=== PATIENT | female | born 1975 | race American Indian/Alaskan Native ===

== ENCOUNTER 2016-08-07 09:15 | Emergency (ER) | payer MEDICAID ==
[2016-08-07 09:33] VITALS: BP 102/66
[2016-08-07 10:02] LABS: Bilirubin,Urine NEG (Negative); Blood,Urine MOD (Negative); Ketones,Urine TR mg/dL (Negative); Leukocyte Esterase,Urine SM (Negative); Mucus,Urine 3+ /HPF; Nitrite,Urine NEG (Negative); Urobilinogen,Urine < 2.0 mg/dL (<2.0)
--- NOTE | 2016-08-07 11:49 | Emergency Department Report ---
ED Female HPI - General Chief complaint: Urogenital-Female Stated complaint: SEVERE GENITAL PAIN/SWOLLEN GLANDS Time Seen by Provider: 08/07/16 11:31 Source: patient Mode of arrival: Ambulatory Limitations: No Limitations - History of Present Illness Initial comments: PT states she has a hx of bartholin's abscess. PT states 2 days ago she started to have pain and swelling to L labia. 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 PT states she did have unprotected sex two weeks ago and she is not sure if that is related. MD Complaint: possible STD, other (labia swelling ) Onset/Timin -: Gradual Location: labia Severity: severe Severity scale (0 -10): 8 Quality: sharp Consistency: constant Improves with: medication Worsens with: movement, other (palpation ) Are you Now?: No Last Menstrual Period: 07/12/16 EDC: 04/18/17 Associated Symptoms: denies other symptoms. denies: vaginal discharge, vaginal bleeding, nausea/vomiting, loss of appetite, dysuria - Related Data Sexually active: Yes Previous Rx's Medication Instructions Recorded Last Taken Type Acetaminophen/Codeine [Tylenol #3] 1 tab PO Q6H PRN #12 tab 08/07/16 Unknown Rx Sulfamethoxazole/Trimethoprim 1 each PO BID #14 tablet 08/07/16 Unknown Rx [Bactrim DS TAB] Allergies Allergy/AdvReac Type Severity Reaction Status Date / Time No Known Allergies Allergy Unverified 01/03/13 14:24 ED Review of Systems ROS: Stated complaint: SEVERE GENITAL PAIN/SWOLLEN GLANDS Other details as noted in HPI Comment: All other systems reviewed and negative Constitutional: denies: chills, fever Gastrointestinal: denies: abdominal pain, nausea, vomiting Genitourinary: other (L labia pain and swelling ). denies: dysuria, discharge, abnormal menses Musculoskeletal: back pain Skin: as per HPI ED Past Medical Hx - Past Medical History Additional medical history: breast cancer - Surgical History Additional Surgical History: right lumpectomy - Social History Smoking Status: Former Smoker Substance Use Type: None - Medications Home Medications: Home Medications Medication Instructions Recorded Confirmed Last Taken Type Acetaminophen/Codeine [Tylenol #3] 1 tab PO Q6H PRN #12 tab 08/07/16 Unknown Rx Sulfamethoxazole/Trimethoprim 1 each PO BID #14 tablet 08/07/16 Unknown Rx [Bactrim DS TAB] ED Physical Exam - General Limitations: No Limitations General appearance: alert, in no apparent distress - Head Head exam: Present: atraumatic, normocephalic - Eye Eye exam: Present: normal appearance. Absent: conjunctival injection - ENT ENT exam: Present: normal exam, normal external ear exam - Neck Neck exam: Present: normal inspection, full ROM - Respiratory Respiratory exam: Present: normal lung sounds bilaterally. Absent: respiratory distress - Cardiovascular Cardiovascular Exam: Present: regular rate, normal rhythm, normal heart sounds - GI/Abdominal GI/Abdominal exam: Present: soft, normal bowel sounds. Absent: tenderness - External exam: Present: swelling, other (L Bartholin's abscess ) - Extremities Exam Extremities exam: Present: normal inspection, full ROM - Back Exam Back exam: Present: normal inspection, full ROM - Neurological Exam Neurological exam: Present: alert, oriented X3 - Psychiatric Psychiatric exam: Present: normal affect, normal mood - Skin Skin exam: Present: warm, dry, intact, normal color ED Course Vital Signs 08/07/16 09:29 Temperature 98.5 F Pulse Rate 88 Respiratory 16 Rate Blood Pressure 102/66 O2 Sat by Pulse 98 Oximetry - Reevaluation(s) Reevaluation #1: 08/07/16 11:49 PT aware of dx. PT gives verbal consent for I and D Reevaluation #2: 08/07/16 13:18 PT reports decrease pain after I and D. 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 PT aware she will need to follow up for full panel std testing. PT has no questions at this time. - I & D Left Pubic Area Type of Procedure: Simple Site: L labia Blade Size: 11 I & D Procedure: betadine prep, sterile drapes applied, no sterile dressing applied, no gauze wick placed (Word catheter placed ) Progress: skin cleansed with betadine. 8 mls of 1% lidocaine used to anesthetize the area. 11 blade use to make incision. Copious amount of purulent drainage noted. Site irrigated with NS, loculations broken up with hemostats. Word Catheter placed. balloon inflated. PT tolerated the procedure well. - Pulse Oximetry Interpretation Digit-Finger Initial Pulse Oximetry Readin Actions Taken: none ED Medical Decision Making - Lab Data Lab Results 08/07/16 08/07/16 Range/Units 09:39 11:36 Urine Color Yellow (Yellow) Urine Turbidity Slightly-cloudy (Clear) Urine pH 6.0 (5.0-7.0) Ur Specific [place] 1.025 (1.003-1.030) Urine Protein 30 mg/dl (Negative) mg/dL Urine Glucose (UA) Neg (Negative) mg/dL Urine Ketones Tr (Negative) mg/dL Urine Blood Mod (Negative) Urine Nitrite Neg (Negative) Urine Bilirubin Neg (Negative) Urine Urobilinogen < 2.0 (<2.0) mg/dL Ur Leukocyte Esterase Sm (Negative) Urine WBC (Auto) 14.0 H (0.0-6.0) /HPF Urine RBC (Auto) 7.0 (0.0-6.0) /HPF U Epithel Cells (Auto) 23.0 H (0-13.0) /HPF Urine Mucus 3+ /HPF Urine HCG, Qual Negative (Negative) ua contaminated - Differential Diagnosis abscess, cellulitis, Critical Care Time: No Critical care attestation.: If time is entered above; I have spent that time in minutes in the direct care of this critically ill patient, excluding procedure time. ED Disposition Clinical Impression: Bartholin's cyst, Risky sexual behavior Disposition: DC- TO HOME OR SELFCARE Is pt being admited?: No Does the pt Need Aspirin: No Condition: Stable Instructions: Sexually Transmitted Diseases (ED), Safe Sex (ED), Bartholin Cyst (ED), Incision and Drainage (ED) Additional Instructions: follow up with adjunct instructor of women's studies follow up for full panel STD testing Warm compresses to L groin multiple times a day No driving or ETOH after taking Tylenol #3 Do no take any other Tylenol containing products when taking Tylenol #3 finish all antibiotics Prescriptions: Acetaminophen/Codeine [Tylenol #3] 1 tab PO Q6H PRN #12 tab PRN Reason: Pain , Severe (7-10) Sulfamethoxazole/Trimethoprim [Bactrim DS TAB] 1 each PO BID #14 tablet Referrals: JANET ARROYO MD [Primary Care Provider] - 3-5 Days ESTRADA UGALDE MD [Staff Physician] - 3-5 Days Forms: Work/School Release Form(ED) Time of Disposition: 13:22
[2016-08-07] MEDS ORDERED: MOTRIN PO ONE (11:50)
[2016-08-07] MEDS ORDERED: XYLOCAINE 1% 20 mL INFILTRATI ONE (11:50)
[2016-08-07] MEDS ORDERED: XYLOCAINE 1% MPF 5 mL INFILTRATI ONE (11:51)
[2016-08-07] MEDS ORDERED: ZITHROMAX PO ONE (11:51)
[2016-08-07] MEDS ORDERED: ROCEPHIN IM ONE (11:51)
== END 2016-08-07 13:31 | disposition home or self-care (01) ==
LOC: ED 09:15
DX: N75.1 Abscess of Bartholin's gland (principal); Z87.891 Personal history of nicotine dependence; Z85.3 Personal history of malignant neoplasm of breast
CPT/HCPCS: 56420; 81001; 81025; 96372; 99283; J0696